=== PATIENT | male | born 1945 | race Caucasian/White ===

== ENCOUNTER 2018-04-03 06:20 | Day surgery (SDC) | payer OTHER ==
[~2018-04-03] VITALS: Ht 157.5 cm; Wt 44.5 kg
[~2018-04-03 06:20] MED LIST: SODIUM CHLORIDE 0.9% 1,000 ML IV ONE
[2018-04-03] MEDS ORDERED: LIDOCAINE 4% 50 ML SOLUTION TP ONE (06:21)
[2018-04-03] MEDS ORDERED: ALBUTEROL SULFATE 2.5 MG/0.5 ML NEB SOLUTION NEB ONE (06:21)
[2018-04-03] MEDS ORDERED: BENZOCAINE 20% 50 MCG/SPRAY 57 GM TP ONE (06:21)
[2018-04-03] MEDS ORDERED: LIDOCAINE 2% 30 ML JELLY TP ONE (06:21)
[2018-04-03] MEDS ORDERED: FISH1CAP27 PO (07:10)
[2018-04-03] MEDS ORDERED: MIRA50TA PO (07:10)
[2018-04-03] MEDS ORDERED: VITA-328 PO (07:14)
[2018-04-03] MEDS ORDERED: DONE5TAB5 PO (07:14)
[2018-04-03] MEDS ORDERED: ATOR20TA86 PO (07:14)
[2018-04-03] MEDS ORDERED: SERT50TA12 PO (07:14)
[2018-04-03] MEDS ORDERED: CALC-26 PO (07:14)
[2018-04-03] MEDS ORDERED: METF-960 PO (07:14)
[2018-04-03] MEDS ORDERED: SOLI5 PO (07:14)
[2018-04-03] MEDS ORDERED: AMLO-511 PO (07:14)
[2018-04-03] MEDS ORDERED: SODIUM CHLORIDE 0.9% 1,000 ML IV ONE (07:15)
[2018-04-03 07:18] LABS: GLUCOMETER DEV NAME(LOC) SDS 5; GLUCOSE,POINT OF CARE 137 MG/DL (70-110)
[2018-04-03] MEDS ORDERED: FentaNYL CITRATE-PF 100 MCG/2 ML VIAL ONE (07:37)
[2018-04-03] MEDS ORDERED: MIDAZOLAM HCL 2 MG/2 ML VIAL ONE (07:37)
[2018-04-03] MEDS ORDERED: MethylPREDNISolone SOD SUCC 125 MG/2 ML VIAL ONE (08:44)
[2018-04-03] MEDS ORDERED: MethylPREDNISolone SOD SUCC 125 MG/2 ML VIAL IVP ONE (08:45)
[2018-04-03] MEDS ORDERED: OXYGEN THERAPY IH SCH (20:00)
== END 2018-04-03 09:55 | disposition home or self-care (01) ==
LOC: SURGERY 06:20 → EDSEX 08:30 → SURGERY 09:55
PROVIDERS: ATTEND Internal Medicine Critical Care Medicine
DX: J38.4 Edema of larynx (principal); B37.0 Candidal stomatitis; J84.111 Idiopathic interstitial pneumonia, not otherwise specified; J98.8 Other specified respiratory disorders; J98.09 Other diseases of bronchus, not elsewhere classified; I10 Essential (primary) hypertension; E11.9 Type 2 diabetes mellitus without complications; I70.0 Atherosclerosis of aorta; E78.00 Pure hypercholesterolemia, unspecified; Z79.84 Long term (current) use of oral hypoglycemic drugs; Z87.09 Personal history of other diseases of the respiratory system; Z79.899 Other long term (current) drug therapy
CPT/HCPCS: 31623; 31624; 71045; 82962; 87015; 87070; 87205; 87206; 87220; 88108; 88312; J2250; J2930; J3010; J7030